=== PATIENT | female | born 1945 | race Caucasian/White ===

== ENCOUNTER → 2016-05-11 | Outpatient (CLI) | payer MEDICARE, MEDICAID | END | disposition home or self-care (01) | LOC: LAB 11:58 | PROVIDERS: ATTEND Internal Medicine Gastroenterology | DX: B18.2 Chronic viral hepatitis C (principal) ==

== ENCOUNTER → 2016-11-16 | Outpatient (CLI) | payer MEDICARE, MEDICAID ==
--- NOTE | 2016-11-16 14:03 | MAM ---
EXAM DESCRIPTION: 3D Screening BILATERAL CLINICAL HISTORY: 71 yearsFemaleSCREENING no complaints. Remote family history of breast cancer. Postmenopausal. Taking HRT five or more years ago. COMPARISON: 2-D digital screening bilateral study 08/15/2015.. No prior reports available. TECHNIQUE: Bilateral CC and MLO projection full-field images, 3-D tomosynthesis digital mammographic technique. Also bilateral synthesized CC/ MLO full-field images. CAD not utilized. FINDINGS: The breast parenchymal density pattern is: Scattered areas of fibroglandular density. No skin thickening or nipple retraction small focal asymmetry or mass density in the middle third of the right breast at the 200 clock position. Approximately 6.6 cm from the lateral breast. Not associated with microcalcifications. No suspicious microcalcifications bilateral breasts. No focal asymmetry or focal mass density in the left breast. IMPRESSION: BI-RADS CATEGORY: 0 - INCOMPLETE- Need additional imaging evaluation. FOLLOW-UP: Recall for additional imaging: Digital full field LM image right breast with orthogonal spot compression of the region of interest. Targeted ultrasound of the middle third of the right breast in the region of interest. Written communication concerning the IMPRESSION and Follow-up, will be mailed to the patient and referring health care provider. Imaging Electronically signed by: Farooq Truong MD 11/16/2016 2:02 PM CDT
--- NOTE | 2016-11-17 17:04 | US ---
EXAM DESCRIPTION: Abdomen,Complete CLINICAL HISTORY: CHRONIC VIRAL HEP C COMPARISON: 31 October 2015 TECHNIQUE: Complete abdominal ultrasound FINDINGS: The exam again suggests a nodular surface the liver consistent with cirrhosis. There is no focal hepatic mass. The patient is postcholecystectomy. The common bile duct is normal in caliber measuring 6.1 mm. Portions of the pancreas seen appear normal. The spleen is normal in appearance. The kidneys are normal in size, shape, and echotexture. The IVC and the proximal aorta are unremarkable. IMPRESSION: 1. The exam again suggests a nodular surface of liver consistent with cirrhosis/chronic hepatitis. No interval changes noted. Electronically signed by: Jaleel Mancilla MD 11/17/2016 5:02 PM CDT
== END ==
LOC: MAMMO 09:22
PROVIDERS: ATTEND Nurse Practitioner Family
DX: Z12.31 Encounter for screening mammogram for malignant neoplasm of breast (principal); B18.2 Chronic viral hepatitis C
CPT/HCPCS: 76700; 77063; G0202

== ENCOUNTER → 2016-12-29 | Outpatient (CLI) | payer MEDICARE, MEDICAID ==
--- NOTE | 2016-12-29 16:31 | US ---
EXAM DESCRIPTION: Breast,Right: Ultrasound CLINICAL HISTORY: 71 yearsFemaleABNORMAL upper outer quadrant right breast. COMPARISON: Digital 2-D/3-D diagnostic mammogram right breast on this visit. TECHNIQUE: Transcutaneous scanning of the right breast utilizing two-dimensional and Doppler modes. Scanning performed by the fingernail sculptor and Dr. Truong. FINDINGS: 12 mm oval-shaped hypoechoic mass at the 900 clock position of the right breast 8 cm from the nipple. Echogenic center. Nonvascular. Consistent with a lymph node. No discrete cysts or parenchymal edema. No large calcifications. No skin thickening. IMPRESSION: 1. Bi-Rads Category 2: Benign. 2. Please refer to diagnostic right breast digital mammogram examination and report on this visit. The findings and the follow-up plan were reviewed in person with the patient after the examination. Written Communication regarding the impression and follow-up will be mailed to the patient and referring health care provider. Electronically signed by: Farooq Truong MD 12/29/2016 4:29 PM CDT
--- NOTE | 2016-12-29 16:46 | MAM ---
EXAM DESCRIPTION: 3D Diagnostic, Right : Digital Mammography. CLINICAL HISTORY: 71 years Female ABNORMAL SCREENING abnormality upper outer quadrant middle third right breast. COMPARISON: 3-D tomosynthesis bilateral screening 11/16/2016.. Targeted right breast ultrasound following this examination. Report from prior examination also reviewed. TECHNIQUE: Right breast 2-D digital full field image. Right breast 3-D tomosynthesis full field LM images. Digital 2-D spot compression upper outer quadrant LM projection. Magnification ML third right breast CC projection. CAD not utilized. FINDINGS: The breast parenchymal density pattern is: Scattered areas of fibroglandular density. No skin thickening or nipple retraction minimal focal asymmetry remains after a spot compression. No skin thickening or abnormal microcalcifications. No mass density. Ultrasound: 12 mm oval-shaped hypoechoic mass at the 900 clock position of the right breast 8 cm from the nipple. Echogenic center. Nonvascular. Consistent with a lymph node. No discrete cysts or parenchymal edema. No large calcifications. No skin thickening. IMPRESSION: BI-RADS CATEGORY: 2 - BENIGN FINDINGS. FOLLOW UP: Return to routine digital bilateral screening, one year interval from November 2016. The FINDINGS and follow-up plan were discussed with the patient in person after the examination. Written communication explaining the IMPRESSION and follow-up, will be mailed to the patient and referring health care provider. According to the [employer], yearly mammograms are recommended starting at age 40 and continuing as long as a woman is in good health. Any breast change noted on a breast self-exam should be reported promptly to the patient's healthcare provider. Breast MRI is recommended for women with an approximately 20-25% or greater lifetime risk of breast cancer, including women with a strong family history of breast or ovarian cancer and women who have been treated for Hodgkin's disease. A negative mammographic report should not delay tissue diagnosis in patients with significant clinical history or physical findings. Extremely dense breast tissue limits the sensitivity of digital mammography. Electronically signed by: Farooq Truong MD 12/29/2016 4:44 PM CDT
== END | disposition home or self-care (01) ==
LOC: MAMMO 15:54
PROVIDERS: ATTEND Nurse Practitioner Family
DX: R92.8 Other abnormal and inconclusive findings on diagnostic imaging of breast (principal)
CPT/HCPCS: 76641; G0206; G0279